=== PATIENT | male | born 1935 | race Caucasian/White ===

== ENCOUNTER 2016-05-12 06:12 | Inpatient (IN) | payer OTHER, MEDICAID ==
[~2016-05-12 06:12] MED LIST: ACETAMINOPHEN 325 MG TAB PO ONE; CEFAZOLIN 2 GM/DEXTR 100 ML IV ONE; CHLORHEXIDINE GLUC HIBICLENS 118 ML BTL TP ONE; DEXAMETHASONE 4 MG/ML VIAL IVP ONE; FAMOTIDINE 20 MG TAB PO ONE; ROPI/epiNEPH/KETOROLAC JOINT COCKTAIL IU ONE; TRANEXAMIC ACID 3,000 MG in NS 50 ML IRR ONE
[2016-05-12] MEDS ORDERED: TRANEXAMIC ACID 3,000 MG/50 ML BAG IRR ONE (06:36)
[2016-05-12] MEDS ORDERED: SKIN ADHESIVE (DERMABOND) 1 EACH TP ONE (06:36)
[2016-05-12] MEDS ORDERED: VANCOMYCIN 1 GM VIAL IV ONE ×2 (06:37)
[2016-05-12] MEDS ORDERED: LIDOCAINE 1% 5 ML SDV ID PRN (06:47)
[2016-05-12] MEDS ORDERED: LR 1,000 ML IV ONE (06:47)
[2016-05-12] MEDS ORDERED: DEXAMETHASONE 4 MG/ML VIAL ONE ×2 (06:52→09:11)
[2016-05-12] MEDS ORDERED: PROPOFOL/EMULSION 500 MG/50 ML BOTTLE IV ONE (07:29)
[2016-05-12] MEDS ORDERED: fentaNYL 100 MCG/2 ML INJ ONE (07:32)
[2016-05-12] MEDS ORDERED: PROPOFOL 200 MG/20 ML VIAL ONE (07:32)
[2016-05-12] MEDS ORDERED: LIDOCAINE 2% 5 ML SDV ONE (07:33)
[2016-05-12] MEDS ORDERED: MIDAZOLAM 2 MG/2 ML VIAL ONE (07:48)
[2016-05-12] MEDS ORDERED: epHEDrine SULFATE 10 MG/ML SYR ONE (09:04)
[2016-05-12] MEDS ORDERED: ROPIVACAINE HCL 150 MG/30 ML INJ ONE (09:10)
[2016-05-12] MEDS ORDERED: ONDANSETRON 4 MG/2 ML VIAL ONE (09:11)
[2016-05-12] MEDS ORDERED: CYCLOBENZAPRINE 10 MG TAB PO PRN (09:19)
[2016-05-12] MEDS ORDERED: ONDANSETRON DISINTEGRATING 4 MG TAB PO PRN (09:19)
[2016-05-12] MEDS ORDERED: MAGNESIUM HYDROXIDE 30 ML UDCUP PO PRN (09:19)
[2016-05-12] MEDS ORDERED: ONDANSETRON 4 MG/2 ML VIAL IVP PRN (09:19)
[2016-05-12] MEDS ORDERED: METOCLOPRAMIDE 10 MG/2 ML VIAL IVP PRN (09:19)
[2016-05-12] MEDS ORDERED: PHARMACY PAIN CONSULT 1 EA MISC PRN (09:19)
[2016-05-12] MEDS ORDERED: POLYETHYLENE GLYCOL 3350 17 GM PKT PO PRN (09:19)
[2016-05-12] MEDS ORDERED: LACTULOSE 20 GM/30 ML UDCUP PO PRN (09:19)
[2016-05-12] MEDS ORDERED: PROMETHAZINE HCL 25 MG SUPPR PR PRN (09:19)
[2016-05-12] MEDS ORDERED: DIPHENOXYLATE/ATROPINE LOMOTIL 1 TAB PO PRN (09:19)
[2016-05-12] MEDS ORDERED: diphenhydrAMINE 25 MG CAP PO PRN (09:19)
[2016-05-12] MEDS ORDERED: TEMAZEPAM 15 MG CAP PO PRN (09:19)
[2016-05-12] MEDS ORDERED: oxyCODONE IR 5 MG TAB PO PRN (09:19)
[2016-05-12] MEDS ORDERED: PROMETHAZINE HCL 25 MG/ML INJ IVP PRN (09:19)
[2016-05-12] MEDS ORDERED: BISACODYL 10 MG SUPP PR PRN (09:19)
[2016-05-12] MEDS ORDERED: NON-FORMULARY NEW DRUG (Omeprazole [Omeprazole] 20 MG) PO PRN (09:20)
[2016-05-12] MEDS ORDERED: PANTOPRAZOLE SODIUM 40 MG TAB PO PRN (10:25)
[2016-05-12] MEDS: LR 1,000 ML IV SCH ×2 (11:13→21:19)
[2016-05-12] MEDS: ACETAMINOPHEN 325 MG TAB PO SCH ×2 (11:19→17:20)
--- NOTE | 2016-05-12 11:43 | POSTOPPROG ---
Post Op Note Date of Operation: 05/12/16 Surgeon: Awa Thompson [employer] Machine Operator: mane thompson Anesthesiologist: dr. rosenthal Anesthesia: Spinal, Other (Specify) (adductor canal block) Pre-op Diagnosis: left knee OA Post-op Diagnosis: same Indication: left knee pain due to OA taht failed conservative measures Procedure: L tKA Findings: severe kene OA Inf/Abcess present in the surg proc area at time of surgery?: No EBL: 50-100
[2016-05-12] MEDS ORDERED: ceFAZolin 2 GM/DEXTROSE 100 ML IV SCH (14:00)
[2016-05-12] MEDS: ceFAZolin 2 GM in D5W 100 ML IV SCH ×2 (14:40→21:18)
[2016-05-12] MEDS ORDERED: WARFARIN SODIUM 5 MG TAB PO SCH (16:00)
--- NOTE | 2016-05-12 19:13 | GOP ---
DATE OF OPERATION: 05/12/2016 SURGEON: Morales Oliveira MD SANITOR: ROBI Alarcon ANESTHESIA: Spinal. PREOPERATIVE DIAGNOSIS: Left knee osteoarthritis. POSTOPERATIVE DIAGNOSIS: Left knee osteoarthritis. PROCEDURE PERFORMED: left total knee arthroplasty. FINDINGS: ESTIMATED BLOOD LOSS: 30 cc. INDICATIONS: This is a 80-year-old male with severe and progressive pain and deformity of the left knee unresponsive to conservative care. Risks and benefits of the surgical intervention were explained in detail. DESCRIPTION OF PROCEDURE: The patient was brought to the operative room and placed on the table in the supine position. Spinal anesthesia was induced without difficulty. A pneumatic tourniquet was applied about the left proximal thigh, and the leg was prepped and draped in a sterile fashion. The leg messer was applied. After exsanguination by elevation the tourniquet was inflated to 250 mm of mercury. Incision was made anterior medial from the tibial tuberosity to a point 3 cm proximal to the superior pole of the patella. Medial parapatellar arthrotomy was carried out from the superior pole of the patella and posteriorly in line with the fibers of the Type II VMO. The medial collateral ligament was elevated and the infrapatellar fat pad was resected. The patella was everted and the articular surface was excised. A 38 mm patellar button was placed. The distal femoral guide hole was drilled and the 6 degree alignment poly was placed. A 8 mm distal femoral cut was made without difficulty. Attention was turned to the tibia and a standard 9 mm cut based on the lateral tibial condyle was performed. The tibial articular surface was excised without difficulty. Attention was turned back to the femur and a size 6 femoral ?Triathlon cutting block was positioned. Anterior, posterior, and chamfer cuts were made, followed by the intercondylar box cut. The knee was extended and the remnants of the medial and lateral meniscus were excised. The posterior capsule was injected with ropivacaine, epinephrine and Toradol. A size 7 MIS Mini-keel tibial tray was positioned. Trial reduction was then carried out. There was excellent range of motion, alignment, and stability using the 13 mm polyethylene. All trials were then removed. The joint was thoroughly irrigated and carefully dried. Two packages of cement and 2 grams of vancomycin were mixed in the vacuum mixer and placed on the fixation surfaces of all surfaces of the components. The components were implanted and all excess cement was thoroughly removed. The permanent 13 mm polyethylene was placed without difficulty. The tourniquet was deflated and all bleeders were coagulated. The wound was thoroughly irrigated and closed using interrupted sutures of 2-0 Vicryl for the joint capsule. The subcu was closed with 3-0 Vicryl and the skin with 4-0 Monocryl. Dermabond and Steri-Strips were applied followed by a compressive dressing. The patient was then moved from the operating room to the recovery room in good condition, having tolerated the procedure well. PATHOLOGY: Severe medial and patellofemoral osteoarthritis. /[id number]/MODL MTDD
[2016-05-12] MEDS: FAMOTIDINE 20 MG TAB PO SCH (21:18)
[2016-05-12] MEDS: SENNOSIDES/DOCUSATE SODIUM TAB PO SCH (21:18)
[2016-05-13] MEDS: ACETAMINOPHEN 325 MG TAB PO SCH ×3 (00:25→11:10)
[2016-05-13 05:33] LABS: HEMATOCRIT 40.7 % (40.0-51.0); HEMOGLOBIN 13.8 g/dL (13.7-17.5)
[2016-05-13 05:45] LABS: ANION GAP 5 mEq/L (8-16); CARBON DIOXIDE 24 mEq/l (22-31); CHLORIDE 106 mEq/L (97-110); CREATININE 0.9 mg/dL (0.7-1.3); GLOMERULAR FILTRATION RATE > 60; GLUCOSE 97 mg/dL (70-100); POTASSIUM 4.6 mEq/L (3.5-5.2); SODIUM 135 mEq/L (134-144)
[2016-05-13 05:51] LABS: INR 1.13 (0.83-1.16); PROTIME(PATIENT) 14.4 SEC (12.0-15.0)
[2016-05-13 07:34] VITALS: BP 147/78; PULSE 60; RESP 15; TEMP 97.8; O2SAT 91
[2016-05-13] MEDS ORDERED: ENOXAPARIN 40 MG/0.4 ML SYR SC SCH (09:00)
[2016-05-13] MEDS: SENNOSIDES/DOCUSATE SODIUM TAB PO SCH (09:20)
[2016-05-13] MEDS: FAMOTIDINE 20 MG TAB PO SCH (09:21)
--- NOTE | 2016-05-13 09:34 | SOAPPROG ---
SOAP Progress Note Assessment/Plan: Assessment: Patient is doing well POD 1 s/p L TKA 1.Pain management: pain is well controlled on oral pain meds 2.Anemia: level is expected initially postop. Asymptomatic. Cont to monitor for symptoms 3.VTE ppx: recommend coumadin and lovenox. Cont JOHNNIE thakkar and SCD 4. d/c planning: d/c to home today pending release from PT. Plan: 05/13/16 09:33 Subjective: Tesfaye is doing well today, denies SOB, chest pain and N/V. Objective: Vital Signs Temp Pulse Resp BP Pulse Ox 36.6 C 60 15 147/78 H 91 L 05/13/16 07:30 05/13/16 07:30 05/13/16 07:30 05/13/16 07:30 05/13/16 07:30 Laboratory Results 05/13/16 05:10 05/13/16 05:10 05/12/16 05/13/16 05/14/16 05:59 05:59 05:59 Intake Total 5481 Output Total 2180 300 Balance 3301 -300 PT 14.4 SEC (12.0-15.0) 05/13/16 05:10 INR 1.13 (0.83-1.16) 05/13/16 05:10 LLE: incision dressing is clean and dry, NVI, +pf/df ICD10 Worksheet Patient Problems: Problems Problem Status Onset Primary localized osteoarthritis of left knee Acute
--- NOTE | 2016-05-13 10:50 | GDS ---
ADMISSION DIAGNOSIS: Left knee osteoarthritis. DISCHARGE DIAGNOSIS: Left knee osteoarthritis. PROCEDURE: Left total knee arthroplasty. VTE PROPHYLAXIS: Coumadin and Lovenox recommended. BRIEF DESCRIPTION OF HOSPITAL STAY: Patient was admitted for an elective joint arthroplasty. The p atient tolerated the procedure well and has passed physical therapy. The patient was given appropri ate antibiotic prophylaxis and venous thromboembolism prophylaxis. The patient's pain was well cont rolled on oral pain medication, patient was holding down food, and had urinated. Decision was made to discharge the patient. The patient was given post-operative prescriptions pre-operatively. PLAN: To follow up with Dr. Oliveira at [facility] in 2 to 3 weeks. /[id number]/MODL
== END 2016-05-13 14:24 | disposition home or self-care (01) | DRG 470 ==
LOC: F3N 06:12
PROVIDERS: ADMIT Orthopaedic Surgery; ATTEND Orthopaedic Surgery
PROC: 0SRD0J9 Replacement of Left Knee Joint with Synthetic Substitute, Cemented, Open Approach (ICD-10-PCS; principal; 2016-05-12 07:53)
DX: M17.12 Unilateral primary osteoarthritis, left knee (principal); I10 Essential (primary) hypertension; E78.5 Hyperlipidemia, unspecified; G47.33 Obstructive sleep apnea (adult) (pediatric); Z85.46 Personal history of malignant neoplasm of prostate
CPT/HCPCS: 97116-GP; 97161-GP; 97165-GO; C1713; G8978-GP-CI; G8979-GP-CI; G8980-GP-CI; G8987-GO-CI; G8988-GO-CI; G8989-GO-CI; J0171; J0690; J1100; J1650; J1885; J2250; J2405; J2704; J2795; J3010; J3370

== ENCOUNTER 2016-05-26 11:25 | Inpatient (IN) | payer OTHER, MEDICAID ==
[2016-05-26 12:22] LABS: % IMMATURE GRANULYOCYTES 0.5 % (0.0-1.1); ABSOLUTE IMMATURE GRANULOCYTES 0.06 10^3/uL (0.00-0.10); ADD DIFF? NO; ADD MORPH? NO; ADD SCAN? NO; ATYPICAL LYMPHOCYTE FLAG 10 (0-99); FRAGMENT RBC FLAG 0 (0-99); HEMATOCRIT 36.4 % (40.0-51.0); HEMOGLOBIN 11.8 g/dL (13.7-17.5); LEFT SHIFT FLG 0 (0-99); LIPEMIA HEMOLYSIS FLAG 80 (0-99); MEAN CELL HEMOGLOBIN 31.1 pg (27.9-34.1); MEAN CELL HEMOGLOBIN CONCENTR. 32.4 g/dL (32.4-36.7); MEAN PLATELET VOLUME 10.6 fL (8.7-11.7); PLATELET CLUMPS FLAG 0 (0-99); PLATELET COUNT 401 10^3/uL (150-400); RED BLOOD CELL COUNT 3.79 10^6/uL (4.40-6.38); RED CELL DISTRIBUTION WIDTH 13.5 % (11.5-15.2)
[2016-05-26 12:33] LABS: INR 2.14 (0.83-1.16); PROTIME(PATIENT) 24.1 SEC (12.0-15.0)
--- NOTE | 2016-05-26 12:42 | EDPHY ---
H & P Time Seen by Provider: 05/26/16 12:34 HPI/ROS: CHIEF COMPLAINT: Black and bloody stools HISTORY OF PRESENT ILLNESS: This 80-year-old man had an upper GI bleed 3 years ago when he was taking a lot of Excedrin for his left shoulder. He had left knee replacement [address] Noble Oliveira and is currently on Coumadin. Over the past 24 hours he has noted black and bloody stools, and today he feels weak but not dizzy or lightheaded no chest pain or shortness of breath or syncope. Symptoms moderate. Not associated with vomiting. Not associated with abdominal pain. REVIEW OF SYSTEMS: Eye: no change in vision ENT: no sore throat Cardiac: no chest pain or syncope Pulmonary: no cough or SOB Abdomen: HPI Musculoskeletal: Left knee swelling is improving Skin: no rash Neuro: no headache Constitutional: no fever : no urinary symptoms A comprehensive 10 point review of systems is otherwise negative aside from elements mentioned in the history of present illness. PAST MEDICAL HISTORY: Upper GI bleed as above, left total knee replacement, left shoulder surgery, prostate cancer and hyperlipidemia. Social history: Nonsmoker General Appearance: Alert and conversant, cooperative. Eyes: No scleral icterus. ENT, Mouth: Normal mucous membranes. Respiratory: Normal respiratory effort, breath sounds equal, lungs are clear to auscultation. Cardiovascular: Regular rate and rhythm. Gastrointestinal: Abdomen is soft and non tender. Neurological: Alert and oriented x3. Normally conversant. Face symmetric, normal movement and sensation in all extremities. Skin: Other than bruising around the left knee incision and surgical site, normal. Musculoskeletal: Patient has left leg swelling which appears to be typical postoperative. Compartments are soft. Incision is clean dry and intact with Steri-Strips in place. There is some bruising but it is not hot or red to the touch and there is no drainage from the wound. Psychiatric: Not agitated. Rectal exam shows melena and maroon stool, and stool sent for Hemoccult. Emergency Department course/MDM: From history more likely upper GI bleed. Lower is considered as well. Likely related to his Coumadin usage. Plan for IV Protonix, fluid resuscitation, admission to hospitalist with GI consultation. Smoking Status: Never smoked Constitutional: Initial Vital Signs Temperature (C) 36.4 C 05/26/16 11:29 Heart Rate 78 05/26/16 11:29 Respiratory Rate 18 05/26/16 11:29 Blood Pressure 110/62 05/26/16 11:29 O2 Sat (%) 97 05/26/16 11:29 O2 Delivery Mode Room Air Allergies/Adverse Reactions: flunisolide Allergy (Unknown, Verified 05/26/16 11:34) Unknown seasonal Allergy (Uncoded 04/21/16 13:49) Unknown Home Medications: Medication Instructions Recorded Herbals/Supplements -Info Only 1 ea PO DAILY 04/12/16 Multivitamins [Multivitamin (*)] 1 each PO DAILY 04/12/16 Omeprazole 20 mg PO DAILY PRN 04/12/16 celeCOXIB [Celebrex (*)] 200 mg PO DAILY #0 cap 05/13/16 Acetaminophen [Tylenol 325mg (*)] 325 - 650 mg PO Q6HRS 05/26/16 Warfarin Sodium [Coumadin 2.5MG 2.5 mg PO DAILY16 05/26/16 (*)] Medical Decision Making Differential Diagnosis: Differential for dark stool Ji considered including but not limited to upper GI bleed, lower GI bleed, coagulopathy, Pepto-Bismol or iron ingestion. Consult/Admit Bed Type: [facility] 1256, [facility] 1315, [facility] [place] 1326 - Data Points Laboratory Results: Laboratory Results 05/26/16 11:44 05/26/16 11:44 05/26/16 05/26/16 05/26/16 11:44 11:44 11:44 WBC 11.28 10^3/uL H 10^3/uL (3.80-9.50) RBC 3.79 10^6/uL L 10^6/uL (4.40-6.38) Hgb 11.8 g/dL L g/dL (13.7-17.5) POC Hgb Hct 36.4 % L % (40.0-51.0) POC Hct MCV 96.0 fL fL (81.5-99.8) MCH 31.1 pg pg (27.9-34.1) MCHC 32.4 g/dL g/dL (32.4-36.7) RDW 13.5 % % (11.5-15.2) Plt Count 401 10^3/uL H 10^3/uL (150-400) MPV 10.6 fL fL (8.7-11.7) Neut % (Auto) 80.0 % H % (39.3-74.2) Lymph % (Auto) 12.8 % L % (15.0-45.0) [place] % (Auto) 5.1 % % (4.5-13.0) Eos % (Auto) 1.0 % % (0.6-7.6) Baso % (Auto) 0.6 % % (0.3-1.7) Nucleat RBC Rel Count 0.0 % % (0.0-0.2) Absolute Neuts (auto) 9.02 10^3/uL H 10^3/uL (1.70-6.50) Absolute Lymphs (auto) 1.44 10^3/uL 10^3/uL (1.00-3.00) Absolute Monos (auto) 0.58 10^3/uL 10^3/uL (0.30-0.80) Absolute Eos (auto) 0.11 10^3/uL 10^3/uL (0.03-0.40) Absolute Basos (auto) 0.07 10^3/uL 10^3/uL (0.02-0.10) Absolute Nucleated RBC 0.00 10^3/uL 10^3/uL (0-0.01) Immature Gran % 0.5 % % (0.0-1.1) Immature Gran # 0.06 10^3/uL 10^3/uL (0.00-0.10) PT 24.1 SEC H SEC (12.0-15.0) INR 2.14 H (0.83-1.16) POC Sodium Sodium 136 mEq/L mEq/L (134-144) POC Potassium Potassium 4.3 mEq/L mEq/L (3.5-5.2) POC Chloride Chloride 103 mEq/L mEq/L (97-110) Carbon Dioxide 22 mEq/l mEq/l (22-31) Anion Gap 11 mEq/L mEq/L (8-16) POC BUN BUN 38 mg/dL H mg/dL (7-23) Creatinine 0.8 mg/dL mg/dL (0.7-1.3) POC Creatinine Estimated GFR > 60 Glucose 90 mg/dL mg/dL (70-100) POC Glucose Calcium 9.3 mg/dL mg/dL (8.5-10.4) Total Bilirubin 0.8 mg/dL mg/dL (0.1-1.4) AST 34 IU/L IU/L (17-59) ALT 49 IU/L IU/L (21-72) Alkaline Phosphatase 86 IU/L IU/L (38-126) Total Protein 6.2 g/dL L g/dL (6.3-8.2) Albumin 3.5 g/dL g/dL (3.5-5.0) 05/26/16 11:43 WBC RBC Hgb POC Hgb 12.6 gm/dL L gm/dL (14.5-17.3) Hct POC Hct 37 % L % (42.8-50.6) MCV MCH MCHC RDW Plt Count MPV Neut % (Auto) Lymph % (Auto) [place] % (Auto) Eos % (Auto) Baso % (Auto) Nucleat RBC Rel Count Absolute Neuts (auto) Absolute Lymphs (auto) Absolute Monos (auto) Absolute Eos (auto) Absolute Basos (auto) Absolute Nucleated RBC Immature Gran % Immature Gran # PT INR POC Sodium 140 mEq/L mEq/L (134-144) Sodium POC Potassium 4.0 mEq/L mEq/L (3.3-5.0) Potassium POC Chloride 95 mEq/L L mEq/L (96-108) Chloride Carbon Dioxide Anion Gap POC BUN 36 mg/dL H mg/dL (7-23) BUN Creatinine POC Creatinine 0.8 mg/dL mg/dL (0.8-1.5) Estimated GFR Glucose POC Glucose 100 mg/dL mg/dL (70-100) Calcium Total Bilirubin AST ALT Alkaline Phosphatase Total Protein Albumin Medications Given: Discontinued Medications Pantoprazole Sodium 40 mg/ (Sodium Chloride) 100 mls @ 200 mls/hr IV EDNOW ONE Stop: 05/26/16 13:28 Last Admin: 05/26/16 13:46 Dose: 100 mls Point of Care Test Results: 05/26/16 11:43 POC Sodium 140 POC Potassium 4.0 POC Chloride 95 L POC BUN 36 H POC Creatinine 0.8 POC Glucose 100 Departure - Departure Disposition: [facility] Inpatient Acute Clinical Impression: Upper GI bleeding Condition: Good
[2016-05-26 12:47] LABS: ALANINE AMINOTRANSFERASE 49 IU/L (21-72); ALBUMIN 3.5 g/dL (3.5-5.0); ALKALINE PHOSPHATASE 86 IU/L (38-126); ANION GAP 11 mEq/L (8-16); ASPARTATE AMINOTRANSFERASE 34 IU/L (17-59); BILIRUBIN,TOTAL 0.8 mg/dL (0.1-1.4); CALCIUM 9.3 mg/dL (8.5-10.4); CARBON DIOXIDE 22 mEq/l (22-31); CHLORIDE 103 mEq/L (97-110); CREATININE 0.8 mg/dL (0.7-1.3); GLOMERULAR FILTRATION RATE > 60; GLUCOSE 90 mg/dL (70-100); POTASSIUM 4.3 mEq/L (3.5-5.2); SODIUM 136 mEq/L (134-144); TOTAL PROTEIN 6.2 g/dL (6.3-8.2)
[2016-05-26] MEDS ORDERED: PANTOPRAZOLE SODIUM 40 MG in NS 100 ML IV ONE (12:59)
[2016-05-26] MEDS ORDERED: ONDANSETRON 4 MG/2 ML VIAL IVP PRN (14:24)
[2016-05-26] MEDS ORDERED: ACETAMINOPHEN 325 MG TAB PO PRN (14:24)
[2016-05-26] MEDS ORDERED: PROPOFOL 200 MG/20 ML VIAL ONE (14:32)
[2016-05-26 14:51] LABS: HEMATOCRIT 35.4 % (40.0-51.0); HEMOGLOBIN 11.6 g/dL (13.7-17.5)
--- NOTE | 2016-05-26 15:06 | GHP ---
[f rep st] HISTORY AND PHYSICAL DATE OF ADMISSION: 05/26/2016 CHIEF COMPLAINT: Black, bloody stools. HISTORY OF PRESENT ILLNESS: This is a 80-year-old male with history of peptic ulcer disease that oc curred after taking Excedrin 3 years ago, who had a left knee replacement [address] Jone geller and was started on warfarin. Over the past 24 hours, he notes having black and bloody stools avila t began last night. He denies any hematemesis. He denies any abdominal pain. He denies any chest pain or shortness of breath but does feel a little bit weak. He denies any NSAID use. PAST MEDICAL HISTORY: 1. Peptic ulcer disease in 2013. 2. Prostate cancer. 3. Hyperlipidemia. PAST SURGICAL HISTORY: 1. Left total knee replacement 2 weeks ago. 2. Left shoulder surgery. HOME MEDICATIONS: Reviewed. ALLERGIES: No known drug allergies. SOCIAL HISTORY: The patient lives in [place]. Denies any alcohol, tobacco, or illicit drug use. FAMILY HISTORY: Reviewed and noncontributory. REVIEW OF SYSTEMS: A comprehensive 10-point review of systems was done and is negative except for a s mentioned in the HPI. PHYSICAL EXAMINATION: VITAL SIGNS: Blood pressure 117/76, pulse 75, respiratory rate 16, O2 sat 95 % on room air, temperature afebrile. GENERAL: No acute distress. HEART: S1, S2. LUNGS: Clear. No wheezes, rales, or rhonchi. ABDOMEN: Soft, nontender, nondistended. No guarding or rebound te nderness. Normoactive bowel sounds. EXTREMITIES: No clubbing or cyanosis. NEURO: Cranial nerves 2-12 grossly intact. No focal motor or sensory deficits. SKIN: Slightly gaunt complexion. No ra shes. DIAGNOSTICS: WBC 11.28, hemoglobin 11.8, hematocrit 36.4, platelets 401. INR 2.14. Sodium 136, po tassium 4.3, chloride 103, CO2 22, BUN 38, creatinine 0.8, glucose 90. Stool occult blood positive. ASSESSMENT AND PLAN: This is a 80-year-old male 2 weeks postop left total knee arthroplasty, on war in for DVT prophylaxis, presenting with: 1. Suspected acute upper gastrointestinal bleed in the setting of previous ulcer and elevated BUN. Plan: The patient was given Protonix in the emergency department. Dr. Daniels from GI was consulte d, who plans to take the patient for endoscopy later on today. The patient's INR is currently 2.14. Will discuss giving vitamin K with Dr. Daniels. Given that he is hemodynamically stable, will with hold FFP at this time. 2. Acute blood loss anemia. Plan: Monitor H and H q.6 hours and transfuse per hospital protocol. The patient will be placed in observation with an expected length of stay of less than 48 hours. Wi ll withhold chemical DVT prophylaxis in the setting of acute bleeding. SCDs will be ordered. /[id number]/MODL
--- NOTE | 2016-05-26 15:21 | SOAPPROG ---
SUSAN Progress Note Assessment/Plan: Assessment:EGD requested for suspected UGI bleed in a patient recently started on Celebrex and Coumadin. He had a previous UGI bleed treated without endoscopy 3-4 years ago. EGD shows some coffee grounds in stomach but no active bleeding. Several tiny no bleeding erosions in the antrum are noted, but do not require hemostatic therapy. CLOtest not performed to reduce chance of iatrogenic bleeding. Plan:PPIs as orders. HP Ab ordered. If stable may go home tomorrow on 12 weeks of PPIs. Need to see if Celebrex and Coumadin can be d/c'd. 05/26/16 15:19 Objective: Vital Signs Temp Pulse Resp BP Pulse Ox 37.1 C 75 16 117/76 95 05/26/16 14:06 05/26/16 14:06 05/26/16 14:06 05/26/16 14:06 05/26/16 14:06 Laboratory Results 05/26/16 14:49 05/25/16 05/26/16 05/27/16 05:59 05:59 05:59 Intake Total 100 Balance 100 PT 24.1 SEC (12.0-15.0) H 05/26/16 11:44 INR 2.14 (0.83-1.16) H 05/26/16 11:44 ICD10 Worksheet Patient Problems: Problems Problem Status Onset Upper GI bleeding Acute Primary localized osteoarthritis of left knee Acute
[2016-05-26] MEDS: PANTOPRAZOLE SODIUM 40 MG TAB PO SCH ×2 (16:17→21:30)
--- NOTE | 2016-05-26 16:32 | GPN ---
[f rep st] PROCEDURE NOTE PROCEDURE PERFORMED: Gastroscopy. INDICATIONS: The patient is a 80-year-old male with a previous history of upper GI bleed due to non steroidals, who presents with a 1-day history of melena. He had total knee replacement 2 weeks ago, was started on Celebrex for anti-inflammation and Coumadin to prevent DVTs. He presents today with multiple bowel movements of black and reddish stool. He denies any abdominal complaints of nausea or vomiting. In the emergency room was noted to have a hemoglobin of 11.6, compared to 13.8 two wee ks ago. Gastroscopy is being performed urgently to evaluate. PROCEDURE: After proper consent was obtained, patient placed in left lateral decubitus position, wh ere he received IV general anesthesia. Video gastroscope was introduced through the mouth, down the esophagus, into the stomach, past the p ylorus into duodenum. Findings as follows: 1. Esophagus was normal. 2. Stomach has some coffee-ground material, but no fresh blood noted. With vigorous lavage, severa l tiny erosions are noted in the antrum, none of which are actively bleeding and none of which requi re hemostatic therapy. 3. Duodenum is normal. 4. CLOtest was not taken to reduce chance of iatrogenic bleeding. At this point, instrument was removed. The patient tolerated procedure well, was returned to [facility] room in stable condition. RECOMMENDATIONS: 1. Patient will be treated for gastritis with proton pump inhibitors. If H pylori is present, I wi ll treat that accordingly. 2. If patient has no further signs of bleeding, he will be discharged tomorrow. 3. If possible, would like to see this patient off his Celebrex and Coumadin, but will have to defe r to the orthopedic surgeon. Copy requested to: Dr. Maral Streeter /[id number]/MODL
[2016-05-27 01:17] LABS: HEMATOCRIT 28.4 % (40.0-51.0); HEMOGLOBIN 9.6 g/dL (13.7-17.5)
[2016-05-27 05:20] LABS: HEMATOCRIT 27.8 % (40.0-51.0); HEMOGLOBIN 9.3 g/dL (13.7-17.5)
[2016-05-27] MEDS ORDERED: Herbals/Supplements -Info Only PO SCH (09:00)
[2016-05-27] MEDS: PANTOPRAZOLE SODIUM 40 MG TAB PO SCH ×2 (09:55→19:26)
[2016-05-27] MEDS: MULTIVITAMINS 1 EACH TAB PO SCH (09:56)
[2016-05-27 11:41] LABS: HEMATOCRIT 27.5 % (40.0-51.0)
--- NOTE | 2016-05-27 14:40 | HOSPPROG ---
Hospitalist Progress Note Assessment/Plan: 72-year-old male presents emergency room complaints of bloody stools. This is my 1st encounter with the patient, chart reviewed. # gastrointestinal bleed EGD performed by Dr. Daniels Multiple tiny gastric erosions no active bleeding Continue proton pump inhibitor Remain off NSAIDs and Celebrex Continue to hold Coumadin Continue to watch for any further signs of bleeding Patient states bloody stool today # acute blood-loss anemia Follow laboratory evaluation # recent knee surgery per Dr. thompson Discontinue Coumadin Discontinue Celebrex #Disposition Inpatient status cont to monitor in hospital setting to assure bleeding has stopped check labs in am if no further bleeding can DC home Subjective: Feels tired and weak. No pain. Still having some bloody stools. Objective: Vital Signs Temp Pulse Resp BP Pulse Ox 36.4 C 69 14 107/63 93 05/27/16 12:36 05/27/16 12:36 05/27/16 12:36 05/27/16 12:36 05/27/16 12:36 Laboratory Results 05/27/16 11:30 05/26/16 05/27/16 05/28/16 05:59 05:59 05:59 Intake Total 615 Output Total 0 Balance 615 PT 24.1 SEC (12.0-15.0) H 05/26/16 11:44 INR 2.14 (0.83-1.16) H 05/26/16 11:44 - Physical Exam Constitutional: no apparent distress, appears nourished, not in pain Eyes: PERRL, anicteric sclera, EOMI Ears, Nose, Mouth, Throat: moist mucous membranes, hearing normal, ears appear normal Cardiovascular: No JVD, No tachycardia, No edema Respiratory: no respiratory distress, no rales or rhonchi, reduced air movement Gastrointestinal: No tenderness, No ascites, No guarding Skin: warm, normal color, No erythema Musculoskeletal: normal joint ROM, no joint effusions, generalized weakness Neurologic: AAOx3 Psychiatric: interacting appropriately, not anxious, not encephalopathic ICD10 Worksheet Patient Problems: Problems Problem Status Onset Upper GI bleeding Acute Primary localized osteoarthritis of left knee Acute
[2016-05-27 15:34] VITALS: RESP 16
[2016-05-28 05:14] LABS: HEMATOCRIT 27.2 % (40.0-51.0); HEMOGLOBIN 8.8 g/dL (13.7-17.5)
[2016-05-28] MEDS: MULTIVITAMINS 1 EACH TAB PO SCH (09:42)
[2016-05-28] MEDS: PANTOPRAZOLE SODIUM 40 MG TAB PO SCH (09:42)
--- NOTE | 2016-05-28 15:54 | HOSPPROG ---
Hospitalist Progress Note Assessment/Plan: 72-year-old male presents emergency room complaints of bloody stools. This is my 1st encounter with the patient, chart reviewed. # gastrointestinal bleed EGD performed by Dr. Daniels Multiple tiny gastric erosions no active bleeding Continue proton pump inhibitor Remain off NSAIDs and Celebrex Spoke with Dr. Daniels, and he recommended no Celebrex or oral anticoagulation. Also spoke with Dr. pasquale sanders, he is fine for this to occur. # acute blood-loss anemia Follow laboratory evaluation slight decrease in hemoglobin hematocrit, will have this rechecked on Tuesday to assure this is stable # recent knee surgery per Dr. thompson Discontinue Coumadin Discontinue Celebrex Reviewed with the patient any signs and symptoms of a DVT #Disposition DC home Subjective: Tesfaye is feeling well /anxious to be discharged Objective: Vital Signs Temp Pulse Resp BP Pulse Ox 36.6 C 76 16 127/61 H 90 L 05/28/16 08:00 05/28/16 08:00 05/28/16 08:00 05/28/16 08:00 05/28/16 08:00 Laboratory Results 05/28/16 04:45 05/27/16 05/28/16 05/29/16 05:59 05:59 05:59 Intake Total 300 Balance 300 PT 24.1 SEC (12.0-15.0) H 05/26/16 11:44 INR 2.14 (0.83-1.16) H 05/26/16 11:44 - Physical Exam Constitutional: no apparent distress, appears nourished, not in pain Eyes: PERRL Ears, Nose, Mouth, Throat: hearing normal Cardiovascular: regular rate and rhythym Respiratory: no respiratory distress Gastrointestinal: normoactive bowel sounds Skin: warm, other ( left knee with minimal swelling with Steri-Strips in place) , No normal color (pale) Musculoskeletal: no muscle tenderness Neurologic: AAOx3 Psychiatric: interacting appropriately, not anxious ICD10 Worksheet Patient Problems: Problems Problem Status Onset Upper GI bleeding Acute Primary localized osteoarthritis of left knee Acute
[2016-05-28 16:34] VITALS: BP 123/65; PULSE 61; TEMP 97.8; O2SAT 91
--- NOTE | 2016-05-28 19:18 | GDS ---
[f rep st] DISCHARGE SUMMARY DISCHARGE DIAGNOSES: 1. Upper gastrointestinal bleed. 2. Acute blood loss anemia. 3. Recent knee surgery with Dr. Oliveira. CONSULTATIONS: Dr. Naif Daniels with Gastroenterology. HISTORY: The patient is a 80-year-old male with history of peptic ulcer disease that occurred after taking Excedrin 3 years ago. He had a left knee replacement approximately [address] Oliveira, and was started on warfarin. He noted that he was having black and bloody stools that began prior to his admission. During his stay, he was seen and evaluated by Dr. Daniels. He had a gastroscopy performed that showed that his esophagus was normal. His stomach had some coffee-ground material, but no fresh blood noted. He had several tiny erosions in the antrum, which were not actively bleeding. He did well throughout his stay. The Celebrex and Coumadin have been discontinued. I reviewed this with both Dr. Oliveira and Dr. Daniels, who felt this was appropriate. HOSPITAL COURSE: 1. Upper GI bleed. He will be on a PPI for the next 12 weeks. I also recommended the patient start oral iron therapy with vitamin C. I have explained to him the iron will make his stools dark. 2. Acute blood loss anemia. Will have his labs rechecked on Tuesday to ensure stability. 3. Recent knee surgery. He will see Dr. Oliveira for followup care. I reviewed with the patient signs and symptoms of DVT and what to monitor for. PENDING LABS AND TEST: None. CONDITION AT DISCHARGE: Stable. Blood pressure is 123/65, heart rate is 61, respiratory rate is 16, O2 sats on room air 91%, temperature is 36.6 Celsius. MEDICATIONS AT DISCHARGE: Please see the EMR. DISCHARGE INSTRUCTIONS: 1. Continue monitoring his stools. 2. Take PPI x12 weeks. 3. If he develops any further bleeding or notices more blood in the stool, to return to the ER immediately. Greater than 30 minutes discharging and coordinating care. /[id number]/MODL MTDD
== END 2016-05-28 17:12 | disposition home or self-care (01) | DRG 378 ==
LOC: F3N 16:05 → OBSVTOIN 05-27 14:42
PROVIDERS: ADMIT Family Medicine; ATTEND Hospitalist
PROC: 0DJ08ZZ Inspection of Upper Intestinal Tract, Via Natural or Artificial Opening Endoscopic (ICD-10-PCS; principal; 2015-05-27)
PROC: 3E1G88Z Irrigation of Upper GI using Irrigating Substance, Via Natural or Artificial Opening Endoscopic (ICD-10-PCS; principal; 2015-05-27)
DX: K29.01 Acute gastritis with bleeding (principal); D62 Acute posthemorrhagic anemia; Z96.652 Presence of left artificial knee joint; E78.5 Hyperlipidemia, unspecified; Z85.46 Personal history of malignant neoplasm of prostate
CPT/HCPCS: 82947-QW; 96374; 97161-GP; 97165-GO; G0378; G8978-GP-CI; G8979-GP-CI; G8980-GP-CI; G8987-GO-CI; G8988-GO-CI; G8989-GO-CI; J0171; J2704

== ENCOUNTER 2017-03-16 09:15 | Inpatient (IN) | payer OTHER, MEDICAID ==
[2017-04-27] MEDS ORDERED: ceFAZolin 2 GM/SWFI 2 GM/20 ML SYR IVP ONE (07:21)
[2017-04-27] MEDS ORDERED: FAMOTIDINE 20 MG TAB PO ONE (07:21)
[2017-04-27] MEDS ORDERED: ROPIVACAINE 0.2% 80 MG, EPINEPHrine 0.2 MG, KETOROLAC TROMETHAMINE 30 MG in SYRINGE 0 ML IU ONE (07:21)
[2017-04-27] MEDS ORDERED: DEXAMETHASONE 4 MG/ML VIAL IVP ONE (07:21)
[2017-04-27] MEDS ORDERED: ACETAMINOPHEN 325 MG TAB PO ONE (07:21)
[2017-04-27] MEDS ORDERED: TRANEXAMIC ACID 3,000 MG in NS (SYRINGE) 50 ML IRR ONE (07:21)
--- NOTE | 2017-04-27 09:22 | PDHPUP ---
History & Physical Update H&P update statement: This history and physical update is based on an assessment of the patient which was completed after admission or registration (within 24 hours), but prior to the surgery/procedure. H&P update: H&P reviewed & patient examined, no change in patient's condition since H&P completed
[2017-04-27] MEDS ORDERED: TRANEXAMIC ACID 3,000 MG/50 ML BAG IRR ONE (09:59)
[2017-04-27] MEDS ORDERED: NON-FORMULARY NEW DRUG (Omeprazole [Omeprazole] 20 MG) PO PRN (11:32)
[2017-04-27] MEDS ORDERED: LR 1,000 ML IV ONE (11:32)
[2017-04-27] MEDS ORDERED: PANTOPRAZOLE SODIUM 40 MG TAB PO PRN (11:44)
--- NOTE | 2017-04-27 11:49 | PDANEPAE ---
ANE History of Present Illness 81 yo male with OA for R TKA. ANE Past Medical History - Cardiovascular History Hx Hypertension: No Hx Arrhythmias: No Hx Chest Pain: No Hx Coronary Artery / Peripheral Vascular Disease: No Hx CHF / Valvular Disease: No Hx Palpitations: No - Pulmonary History Hx COPD: No Hx Asthma/Reactive Airway Disease: No Hx Recent Upper Respiratory Infection: No Hx Oxygen in Use at Home: No Hx Sleep Apnea: No Sleep Apnea Screening Result - Last Documented: Negative Pulmonary History Comment: seasonal allergies - Neurologic History Hx Cerebrovascular Accident: No Hx Seizures: No Hx Dementia: No - Endocrine History Hx Diabetes: No Hypothyroid: No Obesity: no - Renal History Hx Renal Disorders: No - Liver History Hx Hepatic Disorders: No - Neurological & Psychiatric Hx Hx Neurological and Psychiatric Disorders: No - Cancer History Hx Cancer: Yes Cancer History Comment: prostate 2006 - Congenital Disorder History Hx Congenital Disorders: No - GI History GERD: mild Hx Gastrointestinal Disorders: No Gastrointestinal History Comment: H/o GI bleed in 2017 and prior related to NSAID use. - Other Health History Other Health History: wears glasses - Chronic Pain History Chronic Pain: Yes (right knee) - Surgical History Prior Surgeries: left TKA with Tee 05/12/2016. left shoulder- rtc repair. right knee scope. ear surgeries x 3, r/t virus. ANE Review of Systems Review of Systems: - Exercise capacity METS (RN): 4 METS - Systems Constitutional: Reports: no symptoms Cardiac: Reports: no symptoms Respiratory: Reports: no symptoms ANE Patient History - Allergies Allergies/Adverse Reactions: flunisolide Allergy (Unknown, Verified 03/28/17 15:16) 2-3 yrs ago- doesn't remember the reaction - Home Medications Home Medications: Omeprazole 20 mg PO DAILY PRN 04/12/16 [Last Taken 05/25/16] Acetaminophen [Tylenol ES 500 mg (*)] 500 mg PO DAILY PRN 03/28/17 [Last Taken Unknown] - NPO status NPO Since - Liquids (Date): 04/27/17 NPO Since - Liquids (Time): 08:30 NPO Since - Solids (Date): 04/26/17 NPO Since - Solids (Time): 21:00 - Anes Hx Anes Hx: no prior problems - Smoking Hx Smoking Status: Never smoked Marijuana use: No - Alcohol Use Alcohol Use: Rarely - Family Anes Hx Family Anes Hx: neg - N/A Family Hx Anesthesia Complications: none ANE Labs/Vital Signs - Vital Signs Height: 182.88 cm Weight: 79.379 kg ANE Physical Exam - Airway Neck exam: FROM Mallampati Score: Class 2 - Pulmonary Pulmonary: clear to auscultation - Cardiovascular Cardiovascular: regular rate and rhythym ANE Anesthesia Plan Anesthesia Plan: spinal Regional Anesthesia: adductor canal FNB
[2017-04-27] MEDS ORDERED: DEXAMETHASONE 4 MG/ML VIAL ONE (12:03)
[2017-04-27] MEDS ORDERED: FAMOTIDINE 20 MG TAB ONE (12:03)
[2017-04-27] MEDS ORDERED: ceFAZolin 2 GM/SWFI 20 ML SYR IVP ONE (12:03)
[2017-04-27] MEDS ORDERED: ACETAMINOPHEN 325 MG TAB ONE (12:03)
[2017-04-27] MEDS ORDERED: VANCOMYCIN 1 GM VIAL ONE (12:59)
[2017-04-27] MEDS ORDERED: BUPIVACAINE 0.5% 30 ML SDV ONE (13:04)
[2017-04-27] MEDS ORDERED: fentaNYL 100 MCG/2 ML INJ ONE (13:05)
[2017-04-27] MEDS ORDERED: PROPOFOL/EMULSION 500 MG/50 ML BOTTLE IV ONE (13:06)
[2017-04-27] MEDS ORDERED: ENALAPRILAT DIHYDRATE 1.25 MG/ML VIAL IVP PRN (14:17)
[2017-04-27] MEDS ORDERED: NALOXONE HCL 0.4 MG/ML INJ IVP PRN (14:17)
[2017-04-27] MEDS ORDERED: DIAZEPAM 10 MG/2 ML SYR IVP PRN (14:17)
[2017-04-27] MEDS ORDERED: OXYCODONE/APAP 5/325 TAB PO PRN (14:17)
[2017-04-27] MEDS ORDERED: fentaNYL 100 MCG/2 ML INJ IVP PRN (14:17)
[2017-04-27] MEDS ORDERED: ONDANSETRON 4 MG/2 ML VIAL IVP PRN ×2 (14:17→14:32)
[2017-04-27] MEDS ORDERED: LR 250 ML IV PRN (14:17)
[2017-04-27] MEDS ORDERED: oxyCODONE IR 5 MG TAB PO PRN (14:32)
[2017-04-27] MEDS ORDERED: TEMAZEPAM 15 MG CAP PO PRN (14:32)
[2017-04-27] MEDS ORDERED: ONDANSETRON DISINTEGRATING 4 MG TAB PO PRN (14:32)
[2017-04-27] MEDS ORDERED: DIPHENOXYLATE/ATROPINE LOMOTIL 1 TAB PO PRN (14:32)
[2017-04-27] MEDS ORDERED: PROMETHAZINE HCL 25 MG/ML INJ IVP PRN (14:32)
[2017-04-27] MEDS ORDERED: LACTULOSE 20 GM/30 ML UDCUP PO PRN (14:32)
[2017-04-27] MEDS ORDERED: CYCLOBENZAPRINE 10 MG TAB PO PRN (14:32)
[2017-04-27] MEDS ORDERED: BISACODYL 10 MG SUPP PR PRN (14:32)
[2017-04-27] MEDS ORDERED: MAGNESIUM HYDROXIDE 30 ML UDCUP PO PRN (14:32)
[2017-04-27] MEDS ORDERED: METOCLOPRAMIDE 10 MG/2 ML VIAL IVP PRN (14:32)
[2017-04-27] MEDS ORDERED: POLYETHYLENE GLYCOL 3350 17 GM PKT PO PRN (14:32)
[2017-04-27] MEDS ORDERED: PROMETHAZINE HCL 25 MG SUPPR PR PRN (14:32)
[2017-04-27] MEDS ORDERED: diphenhydrAMINE 25 MG CAP PO PRN (14:32)
--- NOTE | 2017-04-27 14:32 | POSTOPPROG ---
Post Op Note Date of Operation: 04/27/17 Surgeon: Awa Thompson Dental Patient Coordinator: mane thompson Anesthesiologist: dr. yuen Anesthesia: Spinal, Other (Specify) (adductor canal block) Pre-op Diagnosis: right knee OA Post-op Diagnosis: same Indication: right knee pain due to OA that failed conservative measure Procedure: R TKA Findings: severe knee OA and medial femoral condyle had large cyst Inf/Abcess present in the surg proc area at time of surgery?: No EBL: 50-100
--- NOTE | 2017-04-27 14:45 | POSTANESTH ---
Post Anesthetic Evaluation Cardiovascular Status: Normal, Stable Respiratory Status: Normal, Stable Level of Consciousness/Mental Status: Can Participate in Eval, Mildly Sleepy, Arousable Pain Control: Adequate, Prn Tx Ordered Nausea/Vomiting Control: Adequate, Prn Tx Ordered Complications Possibly Related to Anesthesia: None Noted (R adductor canal PNB placed in PACU using U/S guidance. Please see anesthesia record for note. See RN sheet for VS.)
[2017-04-27] MEDS ORDERED: LR 1,000 ML IV SCH (15:00)
[2017-04-27] MEDS: ACETAMINOPHEN 325 MG TAB PO SCH ×2 (18:36→22:45)
[2017-04-27] MEDS ORDERED: ceFAZolin 2 GM/DEXTROSE 100 ML IV SCH (22:00)
[2017-04-27] MEDS: ceFAZolin 2 GM/SWFI 2 GM/20 ML SYR IVP SCH (22:40)
[2017-04-27] MEDS: ASPIRIN 81 MG CHEWABLE TAB PO SCH (22:43)
[2017-04-27] MEDS: SENNOSIDES/DOCUSATE SODIUM TAB PO SCH (22:43)
[2017-04-27] MEDS: FAMOTIDINE 20 MG TAB PO SCH (22:46)
[2017-04-28 05:13] VITALS: RESP 16
[2017-04-28] MEDS: ACETAMINOPHEN 325 MG TAB PO SCH ×3 (06:01→20:33)
[2017-04-28] MEDS: ceFAZolin 2 GM/SWFI 2 GM/20 ML SYR IVP SCH (06:04)
--- NOTE | 2017-04-28 08:49 | SOAPPROG ---
SOAP Progress Note Assessment/Plan: Assessment: Patient is doing well POD 1 s/p R TKA Pain management: pain is well controlled on oral pain meds. VTE ppx: recommend aspirin 81 mg BID for 4 weeks, cont JOHNNIE and SCDs Anemia: level is expected initially postop. Asymptomatic. Continue to monitor D/c planning: d/c to home today vs tomorrow pending release from PT, improvement in ability to dorsiflex and patient's comfort level in d/c to home impaired dorsiflexion: patient has impaired dorsiflexion in right lower leg postop R TKA. Most likely due to periarticular injection during surgery. This should wear off approximately 24 hours from surgery. Numbness to light touch of anterior pozo is due to adductor canal block by anesthesiologist. That should wear off sometime this evening/early tomorrow morning. Plan: 04/28/17 08:37 Subjective: Tesfaye is doing well, states numbness to right pooz and difficulty lifting right foot, denies SOB, chest pain and N/v. Objective: Vital Signs Temp Pulse Resp BP Pulse Ox 36.5 C 45 L 16 142/78 H 94 04/28/17 07:13 04/28/17 07:13 04/28/17 07:13 04/28/17 07:13 04/28/17 07:13 Laboratory Results 04/28/17 04:47 04/28/17 04:47 04/27/17 04/28/17 04/29/17 05:59 05:59 05:59 Intake Total 1450 Output Total 480 Balance 970 RLE: incision dressing is clean and dry, NVI, +pf/df ICD10 Worksheet Patient Problems: Problems Problem Status Onset Primary localized osteoarthritis of right knee Acute Primary localized osteoarthritis of left knee Acute Upper GI bleeding Acute
--- NOTE | 2017-04-28 09:33 | GOP ---
[f rep st] OPERATIVE REPORT DATE OF OPERATION: 04/27/2017 SURGEON: Morales Oliveira MD TIN CUTTER: ROBI Alarcon. ANESTHESIA: Spinal. PREOPERATIVE DIAGNOSIS: Right knee osteoarthritis. POSTOPERATIVE DIAGNOSIS: Right knee osteoarthritis. PROCEDURE PERFORMED: Right total knee replacement. FINDINGS: INDICATIONS: This is a 81-year-old male with severe and progressive pain and deformity of the right knee unresponsive to conservative care. Risks and benefits of the surgical intervention were explain ed in detail. DESCRIPTION OF PROCEDURE: The patient was brought to the operative room and placed on the table in t he supine position. Spinal anesthesia was induced without difficulty. A pneumatic tourniquet was ap plied about the right proximal thigh, and the leg was prepped and draped in a sterile fashion. The l eg messer was applied. After exsanguination by elevation the tourniquet was inflated to mm of mercu ry. Incision was made anterior medial from the tibial tuberosity to a point 2 cm proximal to the superior pole of the patella. Medial parapatellar arthrotomy was carried out from the superior pole of the p atella and posteriorly in line with the fibers of the Type II VMO. The medial collateral ligament wa s elevated and the infrapatellar fat pad was resected. The patella was everted and the articular surface was excised. A 38 mm patellar button was placed. T he distal femoral guide hole was drilled and the 6 degree alignment poly was placed. A 8 mm distal fe moral cut was made without difficulty. Attention was turned to the tibia and a standard 7 mm cut based on the lateral tibial condyle was per formed. The tibial articular surface was excised without difficulty. Attention was turned back to the femur and a size 6 Triathlon femoral cutting block was positioned. Anterior, posterior, and chamfer cuts were made, followed by the intercondylar box cut. The knee was extended and the remnants of the medial and lateral meniscus were excised. The posterio r capsule was injected with ropivacaine, epinephrine and Toradol. A size 7 MIS mini-keel tray was p ositioned. Trial reduction was then carried out. There was excellent range of motion, alignment, an d stability using the 9 mm polyethylene. All trials were then removed. The joint was thoroughly irrigated and carefully dried. Two packages of cement and 2 grams of vancomycin were mixed in the vacuum mixer and placed on the fixation surface s of all surfaces of the components. The components were implanted and all excess cement was thoroug hly removed. The permanent 9 mm polyethylene was placed without difficulty. Patient's medial femoral condylar cyst was cleaned and filled with cement. The tourniquet was deflated and all bleeders were coagulated. The wound was thoroughly irrigated and closed using interrupted sutures of 2-0 Vicryl for the joint capsule. The subcu was closed with 3-0 Vicryl and the skin with 4-0 Monocryl. Dermabond and Steri-Strips were applied followed by a compre ssive dressing. The patient was then moved from the operating room to the recovery room in good cond ition, having tolerated the procedure well. PATHOLOGY: Severe medial patellofemoral, as well as lateral osteoarthritis, a large medial femoral c ondyle cyst. /[id number]/MODL
[2017-04-28] MEDS: SENNOSIDES/DOCUSATE SODIUM TAB PO SCH (10:59)
[2017-04-28] MEDS: FAMOTIDINE 20 MG TAB PO SCH ×2 (10:59→20:33)
[2017-04-28] MEDS: ASPIRIN 81 MG CHEWABLE TAB PO SCH ×2 (11:00→20:34)
[2017-04-29 00:03] VITALS: TEMP 97.5
[2017-04-29] MEDS: SENNOSIDES/DOCUSATE SODIUM TAB PO SCH ×2 (01:16→10:06)
[2017-04-29] MEDS: ACETAMINOPHEN 325 MG TAB PO SCH ×3 (01:16→11:44)
[2017-04-29 07:33] VITALS: BP 131/85; PULSE 45; O2SAT 96
--- NOTE | 2017-04-29 07:43 | SOAPPROG ---
SOAP Progress Note Assessment/Plan: Assessment: Patient is doing well POD 2 s/p R TKA Pain management: pain is well controlled on oral pain meds. VTE ppx: recommend aspirin 81 mg BID for 4 weeks, cont JOHNNIE and SCDs Anemia: level is expected initially postop. Asymptomatic. Continue to monitor D/c planning: d/c to home today pending release from PT, impaired dorsiflexion: resolved Plan: 04/28/17 08:37 04/29/17 07:42 Subjective: Tesfaye is doing well, denies pain Objective: Vital Signs Temp Pulse Resp BP Pulse Ox 36.4 C 45 L 16 131/85 H 96 04/29/17 07:32 04/29/17 07:32 04/29/17 07:32 04/29/17 07:32 04/29/17 07:32 Laboratory Results 04/29/17 04:34 04/28/17 04:47 04/28/17 04/29/17 04/30/17 05:59 05:59 05:59 Intake Total 1450 1450 Output Total 480 400 Balance 970 1050 RLE incision dressing is clean and dry, NVI, +pf/df ICD10 Worksheet Patient Problems: Problems Problem Status Onset Primary localized osteoarthritis of right knee Acute Primary localized osteoarthritis of left knee Acute Upper GI bleeding Acute
[2017-04-29] MEDS: ASPIRIN 81 MG CHEWABLE TAB PO SCH (10:05)
[2017-04-29] MEDS: FAMOTIDINE 20 MG TAB PO SCH (10:05)
--- NOTE | 2017-05-03 15:35 | GDS ---
[f rep st] DISCHARGE SUMMARY ADMISSION DIAGNOSIS: Right knee osteoarthritis. DISCHARGE DIAGNOSIS: Right knee osteoarthritis. PROCEDURE: Right total knee arthroplasty. VTE PROPHYLAXIS: Recommend aspirin 81 mg for 4 weeks. BRIEF DESCRIPTION OF HOSPITAL STAY: Patient was admitted for an elective joint arthroplasty. The pa tient tolerated the procedure well and has passed physical therapy. The patient was given appropriat e antibiotic prophylaxis and venous thromboembolism prophylaxis. The patient's pain was well control led on oral pain medication, patient was holding down food, and had urinated. Decision was made to d ischarge the patient. The patient was given post-operative prescriptions pre-operatively. PLAN: To follow up as scheduled at Dr. Oliveira's office, May 12 at 10:30. /[id number]/MODL
== END 2017-04-29 14:05 | disposition home or self-care (01) | DRG 470 ==
LOC: F3N 04-27 11:09 → INTOOBSV 04-27 11:09 → F3N 04-27 15:35 → OBSVTOIN 04-28 16:35
PROVIDERS: ADMIT Orthopaedic Surgery; ATTEND Orthopaedic Surgery
PROC: 0SRC0J9 Replacement of Right Knee Joint with Synthetic Substitute, Cemented, Open Approach (ICD-10-PCS; principal; 2017-04-28)
DX: M17.11 Unilateral primary osteoarthritis, right knee (principal); M85.661 Other cyst of bone, right lower leg
CPT/HCPCS: 97116-GP; 97161-GP; 97165-GO; 97530-GP; 97535-GO; C1713; G8978-GP-CI; G8979-GP-CI; G8980-GP-CI; G8987-GO-CJ; G8988-GO-CI; J0171; J0690; J1100; J1885; J2704; J2795; J3010; J3370